=== PATIENT | female | born 1980 | race Asian ===

== ENCOUNTER → 2018-11-21 | Outpatient (CLI) | payer OTHER ==
[2018-11-23 14:07] LABS: HPV 16 Negative (Negative); HPV 18 Negative (Negative); HPV OTHER HR TYPES Positive (Negative)
== END | disposition home or self-care (01) ==
LOC: LAB SHORT 17:58 → LAB 17:58
PROVIDERS: Obstetrics & Gynecology Gynecology
DX: Z12.4 Encounter for screening for malignant neoplasm of cervix (principal)
CPT/HCPCS: 87624; 87625; G0123

== ENCOUNTER 2022-12-16 07:49 | Day surgery (SDC) | payer OTHER ==
[~2022-12-16] VITALS: Ht 157.5 cm; Wt 52.6 kg
--- NOTE | 2022-12-16 08:17 | NUR ---
12/16/22 0817 SARA ALMEIDA NO HCG PERFORMED IN PRE OP TODAY, PT HAD BLOOD DRAWN WITHIN LAST THREE DAYS AND HCG NEGATIVE
--- NOTE | 2022-12-16 09:41 | NUR ---
12/16/22 0941 Yu Hernandez FLUID DEFICIT OF 350 NOTED ON MYOSURE. MDS AWARE.
--- NOTE | 2022-12-16 10:54 | NUR ---
12/16/22 Romi Terry PO IBUPROFEN GIVEN FOR 2/10 PAIN, DISCUSSED USING TECHNICAL SERVICE REPRESENTATIVE, PATIENT VERBALIZED UNDERSTANDING
== END 2022-12-16 11:19 | disposition home or self-care (01) ==
LOC: ORSCSDS 07:49
PROVIDERS: Obstetrics & Gynecology
PROC: 0UDB8ZX Extraction of Endometrium, Via Natural or Artificial Opening Endoscopic, Diagnostic (ICD-10-PCS; principal; 2022-12-16 09:15)
PROC: 0UBC7ZX Excision of Cervix, Via Natural or Artificial Opening, Diagnostic (ICD-10-PCS; principal; 2022-12-16 09:15)
DX: R87.610 Atypical squamous cells of undetermined significance on cytologic smear of cervix (ASC-US) (principal); D07.0 Carcinoma in situ of endometrium; D25.9 Leiomyoma of uterus, unspecified; J45.909 Unspecified asthma, uncomplicated
CPT/HCPCS: 88305; A9270; J2250; J2405; J3010

== ENCOUNTER 2023-01-07 18:00 | Emergency (ER) | payer OTHER ==
[~2023-01-07] VITALS: Ht 160 cm; Wt 61.2 kg
== END 2023-01-07 18:38 | disposition home or self-care (01) ==
LOC: ER 18:00
DX: M25.512 Pain in left shoulder (principal); V49.40XA Driver injured in collision with unspecified motor vehicles in traffic accident, initial encounter
CPT/HCPCS: 99283